=== PATIENT | male | born 1985 | race Two or more races ===

== ENCOUNTER 2017-12-18 07:25 | Outpatient (CLI) | payer MEDICAID ==
[2017-12-18 10:57] LABS: CHOLESTEROL 161 mg/dL; HDL CHOLESTEROL 27 mg/dL; LDL CHOLESTEROL,CALCULATED 68 mg/dL; LDL/HDL RATIO 2.5 (<3.6); VLDL CHOLESTEROL 66 mg/dL
== END 2017-12-18 07:26 | disposition home or self-care (01) ==
LOC: LAB.F 07:25
PROVIDERS: ATTEND Internal Medicine
DX: E78.5 Hyperlipidemia, unspecified (principal)
CPT/HCPCS: 36415; 80061; 83721

== ENCOUNTER 2018-11-17 15:40 | Outpatient (CLI) | payer MEDICAID ==
--- NOTE | 2018-11-17 18:19 | XRAY Report ---
Reason: PAIN IN RIGHT HIP Procedure Date: 11/17/2018 Accession Number: [id number] / [id number] Procedure: XR - Hip w/Pelvis 2-3V RT CPT Code: FULL RESULT: EXAM: RIGHT HIP RADIOGRAPHY EXAM DATE: 11/17/2018 03:55 PM. CLINICAL HISTORY: PAIN IN RIGHT HIP. COMPARISON: None. TECHNIQUE: 2 views. FINDINGS: Bones: Normal. No fractures or bone lesion. Joints: Normal. No dislocation. The hip joint space is preserved. Soft Tissues: Normal. No soft tissue swelling. IMPRESSION: Negative hip radiography. [facility]
== END 2018-11-17 15:41 | disposition home or self-care (01) ==
LOC: DI 15:40
PROVIDERS: ATTEND Internal Medicine
DX: M25.551 Pain in right hip (principal)

== ENCOUNTER 2019-12-01 10:47 | Outpatient (CLI) | payer MEDICAID | END 2019-12-01 23:59 | disposition home or self-care (01) | LOC: LAB.WCP 10:47 | PROVIDERS: ATTEND Registered Nurse | DX: Z00.00 Encounter for general adult medical examination without abnormal findings (principal) | CPT/HCPCS: 36415; 86769 ==

== ENCOUNTER 2020-02-21 10:12 | Outpatient (CLI) | payer MEDICAID ==
--- NOTE | 2020-02-21 10:39 | SLEEP CARE CONSULTATION ---
Information from patient questionnaire entered by Acacia Lees. I have reviewed and concur with the information entered by Acacia Lees. This document represents the service I personally performed and the decisions made by me, Kimi Issa MD, [facility]. History of Present Illness Service Date and Time: 02/21/2020 1012 Reason for Visit: New patient Chief Complaint: reports: Unrefreshed sleep, Snoring, Observed pauses in breathing, Fatigue, Frequent awakenings at night, Other (In 2009 Doctor said he was 'on the fence' of needing a CPAP machine. He would like to pursue one today) Date of Onset: 10+ years Usual bedtime: 4992-7617 Time it takes to fall asleep: 10-15 minutes Snores at night: Yes Observed to quit breathing while asleep: Yes Sleeps alone due to snoring: Yes Number of times waking at night: 2-3 Reasons for waking at night: reports: Snoring, Bathroom Toss, Turn, or Twitch while sleeping: Yes Recalls having dreams: No Usually gets out of bed at: 1422-0021 Feels refreshed in the morning: No Morning headache: Yes (sometimes) Sleepy or fatigued during the day: Yes Ever fallen asleep while driving: Yes Takes day naps: No Dreams during day naps: No Prior sleep studies: Yes Year and Where: 2009 in [place] Additional HPI information: I had the pleasure of seeing Mr. Rosales today regarding the possibility of him having a sleep disorder. As you know, he is a 34 year old gentleman who complains of loud snore, observed apneas, unrefreshed sleep, and excessive daytime sleepiness. He had a sleep study in [place] 10 years ago that was borderline. He was given the option of trying the CPAP therapy but he declined. He now would like to be reevaluated for the treatment. He takes methylphennidate 50 mg in the morning 2 3 times a week for ADD. 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 Patient is and lives in [place]. Have you smoked in the past 12 months: No Cigarettes per day (20/pack): 5 Years of smokin (3-5) Quit date: 2004 Smoking Pack Years: 0.8 Alcohol use: Yes Alcohol amount and frequency: 2-3, 2x/week Caffeine use: Yes Caffeine amount and frequency: 1/day in AM Family History Family history of sleep disordered breathing: Yes Family Hx Sleep Apnea: Mother: Snoring, Father: Snoring Allergies and Home Medications Drug allergies reviewed: Yes Home medication list reviewed: Yes (Ritalin 50 mg in the morning) Review of Systems Cardiovascular: denies: high blood pressure, palpitations, chest pain, irregular heart rate or pulse, leg or foot swelling, have to sleep sitting up, other Respiratory: denies: shortness of breath, wheeze, sputum production, chronic cough, other Gastrointestinal: denies: heartburn, difficulty swallowing, nausea, vomitting, diarrhea, abdominal pain, other Urinary: denies: incontinence, frequency, urgency, impotence, other Neurological: denies: headaches, seizure, head trauma, disorientation, speech dysfunction, gait or balance problems, fainting or unconsciousness, other Ear/Nose/Throat: reports: nasal congestion (seasonal), wisdom teeth removed Endocrine: denies: thyroid disease, history of goiter, sluggishness, too hot or cold, excessive thirst, increased appetite, increased urination, unexplained weakness, other Musculoskeletal: denies: joint pain, neck pain, back pain, joint swelling, muscle pain or cramping, mobility problems, other Immunologic: denies: sneezing, rash, itching, allergies to food or environment, other Physical Exam Vital signs obtained and entered by: To minimize the risk of COVID-19 exposure, detailed exam was not performed. Height: 5 ft 5 in Weight: 230 lb Body Mass Index: 38.2 BMI Classification: Obese Impression and Plan IMPRESSION: 1. Obstructive Sleep Apnea-Hypopnea Syndrome, as suggested by history of loud and irregular snoring, observed cessation of breath while asleep, unrefreshed sleep, cognitive impairment, and daytime hypersomnolence. Narrow oropharynx and obesity are common predisposing factors for obstructive sleep apnea-hypopnea syndrome. Pathophysiology of sleep-disordered breathing was discussed. I recommend proceeding to polysomnography to confirm the diagnosis and to assess severity. If he has significant sleep disordered breathing, a manual CPAP titration study will also be performed to find the optimal treatment pressure. I informed the patient of what the sleep studies involve and after some discussion, he agreed to proceed. Plan: 1. Schedule polysomnography + manual CPAP titration study 2. Avoid long distance driving or when feeling sleepy. 3. Avoid alcohol, sedative and muscle relaxant around bedtime. 4. Attempt to lose weight. 5. Return in 1 to 2 weeks after the study to discuss results and initiate therapy. Visit Type: In Office Time Spent with Patient (minutes): 15 Provider Statement: I spent 100% of the Face to Face Visit with the patient with greater than 50% spent counseling the patient and coordination of care.
== END 2020-02-21 10:13 | disposition home or self-care (01) ==
LOC: SC 10:12
PROVIDERS: ATTEND Internal Medicine Pulmonary Disease
DX: G47.33 Obstructive sleep apnea (adult) (pediatric) (principal); E66.9 Obesity, unspecified; Z68.38 Body mass index [BMI] 38.0-38.9, adult
CPT/HCPCS: 99203; 99212

== ENCOUNTER 2020-03-22 20:37 | Outpatient (CLI) | payer MEDICAID | END 2020-03-22 20:38 | disposition home or self-care (01) | LOC: SC 20:37 | PROVIDERS: ATTEND Internal Medicine Pulmonary Disease | DX: G47.33 Obstructive sleep apnea (adult) (pediatric) (principal); E66.9 Obesity, unspecified; Z68.38 Body mass index [BMI] 38.0-38.9, adult | CPT/HCPCS: 95810 ==

== ENCOUNTER 2020-04-03 09:52 | Outpatient (CLI) | payer MEDICAID ==
--- NOTE | 2020-04-03 10:17 | SLEEP CARE CONSULTATION ---
Information from patient questionnaire entered by Selene Johnson. I have reviewed and concur with the information entered by Selene Johnson. This document represents the service I personally performed and the decisions made by me, Kimi Issa MD, [facility]. History of Present Illness Service Date and Time: 04/03/2020 0952 Initial [place] Sleepiness Scale score: 15 (in 2019) Additional HPI information: HPI: Mr. Rosales returns for a follow up of the sleep study he had on 03/22/2020. The polysomnography showed that the patient had normal sleep efficiency. Except for mild sleep fragmentation, the sleep architecture was normal as well. Respiratory monitoring showed moderate obstructive sleep apnea- hypopnea (AHI = 15.4) associated with frequent arousals, oxyhemoglobin desaturation and mild hypoxia (madisyn oxygen saturation of 80%). The respiratory events occurred more frequently during supine sleep and REM sleep (supine AHI = 26.3; non-supine = 12.37). Snore was loud in intensity. There was no significant periodic leg movement of sleep. Cardiac rhythm was normal sinus rhythm without significant arrhythmia. No abnormal behavior (parasomnia) observed during the night. The patient was informed of these findings. I explained to him the pathophysiology behind obstructive sleep apnea. We then spent quite a bit of time discussing different treatment options. For mild obstructive sleep apnea, surgery and oral appliance are alternatives to nasal CPAP therapy but in moderate or severe cases, nasal CPAP is the most effective and reliable treatment. Weight loss in an obese individual is strongly recommended. After some discussion, he opted to go with the nasal CPAP therapy. I explained to him how CPAP machine works and what to expect when using the machine. Sleep Study - Results Type of Sleep Study: Polysomnography Prior sleep studies: Yes Year and Where: 2009 in [place] Allergies and Home Medications Drug allergies reviewed: Yes Home medication list reviewed: Yes Review of Systems Review of systems same as previous: Yes Physical Exam Height: 5 ft 5 in Weight: 230 lb Body Mass Index: 38.2 BMI Classification: Obese Impression and Plan IMPRESSION: 1. Obstructive Sleep Apnea-Hypopnea Syndrome, moderate, associated with moderate hypoxemia and sleep fragmentation. Most likely, this is the cause of the patients symptoms of unrefreshed sleep, and excessive daytime sleepiness. As mentioned above, the patient will be scheduled for a manual CPAP/BiPAP titration study to find the optimal treatment setting. PLAN: 1. Schedule a manual CPAP/BiPAP titration study. 2. Attempt to lose weight and avoid alcohol consumption near bedtime. 3. Return for follow up after the titration study. Visit Type: In Office Time Spent with Patient (minutes): 15 Provider Statement: I spent 100% of the Face to Face Visit with the patient with greater than 50% spent counseling the patient and coordination of care.
== END 2020-04-03 09:53 | disposition home or self-care (01) ==
LOC: SC 09:52
PROVIDERS: ATTEND Internal Medicine Pulmonary Disease
DX: G47.33 Obstructive sleep apnea (adult) (pediatric) (principal); Z68.38 Body mass index [BMI] 38.0-38.9, adult
CPT/HCPCS: 99212; 99213

== ENCOUNTER 2020-05-07 20:30 | Outpatient (CLI) | payer MEDICAID | END 2020-05-07 20:31 | disposition home or self-care (01) | LOC: SC 20:30 | PROVIDERS: ATTEND Internal Medicine Pulmonary Disease | DX: G47.33 Obstructive sleep apnea (adult) (pediatric) (principal) | CPT/HCPCS: 95811 ==

== ENCOUNTER 2020-05-22 09:53 | Outpatient (CLI) | payer MEDICAID ==
--- NOTE | 2020-05-22 10:27 | SLEEP CARE CONSULTATION ---
Information from patient questionnaire entered by Selene Johnson. I have reviewed and concur with the information entered by Selene Johnson. This document represents the service I personally performed and the decisions made by me, Kimi Issa MD, [facility]. History of Present Illness Service Date and Time: 05/22/2020 0953 Initial [place] Sleepiness Scale score: 15 (in 2019) Current [place] Sleepiness Scale score: 12 Additional HPI information: HPI: Mr. Rosales returns for follow up of the sleep study (a manual CPAP titration study) he had on 05/07/2020. The polysomnography showed that CPAP was initiated at 4 cmH2O and titrated up to CPAP at 8 cmH2O. CPAP at 8 cmH2O appeared to be optimal (AHI of 0.5 per hour on the pressure). There was supine REM sleep on the pressure. Oxygen saturation was minimally low. Lower CPAP set tings appeared adequate as well. The patient appeared to have tolerated positive airway pressure therapy very well. The patients sleep efficiency was normal. The sleep architecture was also normal. There was no significant periodic leg movement of sleep. Cardiac rhythm was normal sinus rhythm without significant arrhythmia. No abnormal behavior (parasomnia) observed during the night. The patient was informed of these findings. He has not been started on the positive airway pressure therapy yet. Sleep Study - Results Type of Sleep Study: Polysomnography (titration) Prior sleep studies: Yes Year and Where: 2009 in [place] Allergies and Home Medications Drug allergies reviewed: Yes Home medication list reviewed: Yes Review of Systems Review of systems same as previous: Yes Physical Exam Vital signs obtained and entered by: To minimize the risk of COVID-19 exposure, detailed exam was not performed. Height: 5 ft 5 in Weight: 230 lb Body Mass Index: 38.2 BMI Classification: Obese Impression and Plan IMPRESSION: 1. Obstructive Sleep Apnea-Hypopnea Syndrome, moderate (AHI was 15.4), adequately controlled with CPAP of 8 cmH2O. Based on the sleep studies I will order him an autoCPAP set between 4 and 8 cmH2O with Respironics DreamWear nasal cushion mask or ResMed N30i mask. I anticipate good treatment compliance. PLAN: 1. Prescription made for an autoCPAP, heated humidifier, and related supplies. 2. Attempt to lose weight. 3. Return for follow up after a month on the treatment. Visit Type: In Office Time Spent with Patient (minutes): 15 Provider Statement: I spent 100% of the Face to Face Visit with the patient with greater than 50% spent counseling the patient and coordination of care.
== END 2020-05-22 09:54 | disposition home or self-care (01) ==
LOC: SC 09:53
PROVIDERS: ATTEND Internal Medicine Pulmonary Disease
DX: G47.33 Obstructive sleep apnea (adult) (pediatric) (principal); E66.9 Obesity, unspecified; Z68.38 Body mass index [BMI] 38.0-38.9, adult
CPT/HCPCS: 99212; 99213

== ENCOUNTER 2020-06-13 20:19 | Outpatient (CLI) | payer MEDICAID | END 2020-06-13 20:20 | disposition home or self-care (01) | LOC: COV 20:19 | PROVIDERS: ATTEND Physician Assistant | DX: U07.1 COVID-19 (principal) ==